=== PATIENT | female | born 1940 | race Caucasian/White ===

== ENCOUNTER → 2019-08-07 | Outpatient (CLI) | payer MEDICARE, OTHER | LOC: GMA MATASK 17:19 | PROVIDERS: ATTEND Family Medicine | DX: E11.9 Type 2 diabetes mellitus without complications (principal); E78.2 Mixed hyperlipidemia; F06.33 Mood disorder due to known physiological condition with manic features ==

== ENCOUNTER → 2019-08-28 | Outpatient (CLI) | payer MEDICARE, OTHER ==
--- NOTE | 2019-08-29 10:29 | NM ---
EXAM DESCRIPTION: Thyroid Uptake Scan CLINICAL HISTORY: OTHER THYROTOXICOSIS COMPARISON: [None.] TECHNIQUE: Patient was given 248 uCi of iodine 123 radiopharmaceutical orally. Percentage of activity in the thyroid gland was measured at 5 hr. Activity was again measured at 24 hr. Anterior and anterior-oblique gamma camera images. FINDINGS: 1.9% I-123 uptake at 5 hours. 2.4% I-123 uptake is 24 hours. Both values are abnormally low. Decreased activity/uptake in the mid and upper pole of the left lobe. This could be due to cysts or nodules or other space occupying lesions. No ectopic radiopharmaceutical activity outside of the thyroid gland. IMPRESSION: Abnormally low 5 hour and 24-hour uptake of I-123 radiopharmaceutical could be related to hyperthyroidism or inflammatory process. Decreased activity in the mid and upper pole of the left lobe could be secondary to poor function or space-occupying lesion such as nodular cyst. Consider follow-up thyroid ultrasound. Electronically signed by: Eliazar Hartmann MD 08/29/2019 10:27 AM CDT
== END ==
LOC: NM 08:06
PROVIDERS: ATTEND Family Medicine
DX: E05.90 Thyrotoxicosis, unspecified without thyrotoxic crisis or storm (principal); E07.9 Disorder of thyroid, unspecified
CPT/HCPCS: 78012; A9516

== ENCOUNTER → 2019-09-07 | Outpatient (CLI) | payer MEDICARE, OTHER ==
--- NOTE | 2019-09-08 04:44 | US ---
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 COMPARISON: Radionuclide I-123 thyroid uptake and scan August 27. TECHNIQUE: Transcutaneous scanning, grayscale and Doppler modes. FINDINGS: Size right thyroid lobe: 5.5 x 2.0 x 2.3 cm Size left thyroid lobe: 5.3 x 2.9 x 2.0 cm Size isthmus: 0.52 cm Estimated total number of nodules greater than or equal to 1 cm: 5. Both lobes and the isthmus are very heterogeneous. Multiple hypoechoic nodules in the right lobe. Nodule 1: Size: 1.6 x 1.6 x 1.8 cm Location: Left Lower Composition: solid or almost completely solid: 2 points. Not vascular. Echogenicity: hypoechoic: 2 points Shape: wider than tall: 0 points Margins: smooth: 0 points. Partially calcified. Echogenic foci: peripheral calcifications: 2 points ACR Total Points: 6; ACR TI-RADS risk category: TR4 - moderately suspicious nodule. Nodule 2: Size: 1.4 x 1.2 x 0.7 cm Location: Left Mid Composition: solid or almost completely solid: 2 points. Not vascular. Echogenicity: hypoechoic: 2 points Shape: wider than tall: 0 points Margins: smooth: 0 points Echogenic foci: none: 0 points ACR Total Points: 4; ACR TI-RADS risk category: TR4 - moderately suspicious nodule. Nodule 3: Size: 1.5 x 1.2 x 1.0 cm Location: Isthmus left Composition: mixed cystic and solid: 1 point. Partially vascular. Echogenicity: hypoechoic: 2 points Shape: wider than tall: 0 points Margins: smooth: 0 points Echogenic foci: none: 0 points ACR Total Points: 3; ACR TI-RADS risk category: TR3 - mildly suspicious nodule. Nodule 4: Size: 1.0 x 1.0 x 0.9 cm Location: Right Mid Composition: solid or almost completely solid: 2 points. Partially vascular. Echogenicity: hypoechoic: 2 points Shape: wider than tall: 0 points Margins: smooth: 0 points Echogenic foci: peripheral calcifications: 2 points ACR Total Points: 6; ACR TI-RADS risk category: TR4 - moderately suspicious nodule. "Nodule 5" measures 1.1 x 1.2 x 0.7 cm, in the anterior lower right lobe. It is solid and hypoechoic and partially vascular. Wider than tall with smooth margins and no calcifications. No dominant solid mass, no distinct cyst, no fluid collection, and no large calcifications in the surrounding soft tissues. IMPRESSION: 1. Comparing to the radionuclide thyroid 123 scan, the region of the mid and left upper lobe which show decreased radionuclide activity on the scan shows no space-occupying lesion by ultrasound. The isthmus shows decreased activity on the I-123 scan, compared to the bilateral lower poles, which could correspond to nodule 3. Decreased radionuclide iodine uptake increases risk for malignancy. 2. Nodule 1: ACR TI-RADS 2017 Category TR4. Recommend: Ultrasound-guided fine needle aspiration. Recommendations based upon [facility] Best Practice recommendations and ACR TI-RADS 2017 guidelines. Please see below*. 3. Nodule 2: ACR TI-RADS 2017 Category TR4. Recommend: Follow-up ultrasound in 1 year. 4. Nodule 3: Isthmus nodule. ACR TI-RADS 2017 Category TR3. Recommend: Ultrasound-guided fine needle aspiration 5. Nodule 4: ACR TI-RADS 2017 Category TR4. Recommend: Follow-up ultrasound in 1 year.. "Nodule 5", similar in size and location can also be followed. 6. Soft tissue around the thyroid gland is unremarkable. *ACR TI-RADS 2017 Recommendations for imaging follow-up of nodules: TR1: No FNA or follow up TR2: No FNA or follow up TR3: FNA if >/= 2.5 cm, follow up if 1.5 - 2.4 cm in 1, 3, and 5 years TR4: FNA if >/= 1.5 cm, follow up if 1.0 - 1.4 cm in 1, 2, 3, and 5 years TR5: FNA if >/= 1.0 cm, follow up if 0.5 - 0.9 cm every year for 5 years ACR TI-RADS recommends that no more than two nodules with the highest ACR TI-RADS total point should be biopsied and no more than four nodules should be followed. These recommendations do not apply to patients with increased risk for thyroid cancer or patients with symptomatic thyroid disease. Electronically signed by: Eliazar Hartmann MD 09/08/2019 4:42 AM CDT
== END ==
LOC: US 13:12
PROVIDERS: ATTEND Family Medicine
DX: E05.80 Other thyrotoxicosis without thyrotoxic crisis or storm (principal); E04.2 Nontoxic multinodular goiter

== ENCOUNTER → 2019-09-19 | Outpatient (CLI) | payer MEDICARE, OTHER ==
--- NOTE | 2019-09-19 20:14 | US ---
Thyroid Biopsy, Image-Guided: Biopsy of Thyroid: Ultrasound CLINICAL INFORMATION: 79 years Female. Abnormal nodule in the lingula and in the left lower lobe. Abnormal radionuclide thyroid I-123 uptake and scan. COMPARISON: Ultrasound thyroid September 06. Radionuclide I-123 thyroid uptake and scan August 27.. TECHNIQUE: Procedure was explained to the patient with risks and benefits. The patient gave verbal and written consent. Sterile preparation draping. 1% xylocaine dermal anesthetic 9-1 mixture with sodium bicarbonate. Sterile ultrasound guidance. A total of 6 passes in each nodule; 4 needle samplings per nodule with a separate 1.5 inch, 25-gauge needle per sample, and 2 aspirations per nodule, with a separate 1.5 inch, 25-gauge needle/10-cc syringe set, per aspiration. Each sample was placed on a separate slide and fixed in 95% alcohol container. Saccomanno fluid drawn into aspirate needle and rinse injected into Saccomanno container. Specimens to be sent for pathologic examination at remote facility. . Patient tolerated procedure well. Biopsy #: 1 Nodule reference number based on prior diagnostic ultrasound:3 Maximum size: 1.5 cm Location: isthmus; mid ACR TI-RADS risk category: TR3 (3 points) Reason for biopsy: meets other recommendations but not ACR TI-RADS. Decreased radioactive iodine 123 uptake on radionuclide I-123 scan and uptake. Biopsy #: 2 Nodule reference number based on prior diagnostic ultrasound:1 Maximum size: 1.8 cm Location: left; lower ACR TI-RADS risk category: TR4 (4-6 points) Reason for biopsy: meets ACR TI-RADS criteria Note: The anterior and anterior lateral wall of this nodule was extremely calcified, making aspiration and sampling difficult. It is interpreted that one of the sampling needles penetrated the calcium, entering the nodule for sampling and one of the aspiration needles penetrated the calcium, entering the nodule for aspiration. Complications: Technical complications aspirating nodule 1 as described above. No immediate clinical complications for the patient, other than mild ecchymosis at the puncture site. FINDINGS: Multiple images demonstrate the echogenic needle within nodule 3 during sampling and aspirations. IMPRESSION: Successful ultrasound guided fine needle aspiration and sampling of isthmus thyroid nodule. ACR TI-RADS Risk Category TR 3. Technically difficult aspiration and sampling nodule 1 as described above, mainly due to calcified wall. Electronically signed by: Eliazar Hartmann MD 09/19/2019 4:53 PM CDT
== END ==
LOC: US 09:00
PROVIDERS: ATTEND Family Medicine
DX: E05.80 Other thyrotoxicosis without thyrotoxic crisis or storm (principal); E04.2 Nontoxic multinodular goiter

== ENCOUNTER → 2019-10-10 | Outpatient (CLI) | payer MEDICARE, OTHER | LOC: GMA MATASK 14:40 | PROVIDERS: ATTEND Family Medicine | DX: E05.80 Other thyrotoxicosis without thyrotoxic crisis or storm (principal); E11.9 Type 2 diabetes mellitus without complications ==